=== PATIENT | female | born 1990 | race Two or more races ===

== ENCOUNTER 2016-12-17 10:31 | Emergency (ER) | payer BC ==
[2016-10-11 21:07] VITALS: BMI 21.0
--- NOTE | 2016-12-17 11:25 | OBHP ---
Datetime: 12/17/2016 11:17 IP Chief Complaint Other: fever and sore throat IP Admit Plan Other: transfer to main er Admit Comment, IP Provider: Chief complaint -fever and sore throat HPI 26 y/o at 21.2 wga with c/o sore throat, difficulty swallowing and having temp 100.5 F l ast night.Denies abdominal pain, back pain, vaginal bleeding or loss of fluid.Denies dysuria, urgency , frequency.States that she took temp last night and it was 100.5 F.Patient states that she took tyle nol this am.Patient called her PCP today and was advised to come to ER for evaluation. course - care with Dr CRUZ; placenta previa PMH denies PSH denies OBGYN HX Social hx denies tobacco,alcohol or illcit drug use Exam see exam section A/P 26 y/o at 21.2 wga with c/o fever and sore throat and difficulty swallowing since last ni ght.FHR 150S.Patient cleared from obstetric standpoint -transfer to main er for further evaluation Dr Cruz informed Pelvic Type - PN: Adequate Extremities - PN: Normal Abdomen - PN: Normal FHR - Baseline A Provider: 150S Gestation - Est Wks by US: 21.2 Vital Signs Provider: Reviewed Vital Signs Provider Details: temp 99.5 F Genitourinary Exam: Not Done DTRs - PN: Normal
[2016-12-17 12:27] VITALS: BP 96/57; PULSE 92; RESP 18; TEMP 98.5; O2SAT 100
--- NOTE | 2016-12-17 12:50 | C.PDOC ---
History Of Present Illness 26 y/o female presents to the ED with complaints of sore throat, fever, headache and nausea since yesterday. Pt is currently 21 weeks , . Pt was sent to ED from OB ED where they checked urine and had NST which were normal. Pt denies abdominal pain, vaginal bleeding/discharge, dysuria/hematuria. Time Seen by Provider: 12/17/16 12:30 Chief Complaint (Nursing): GI Problem History Per: Patient History/Exam Limitations: None Onset/Duration Of Symptoms: Hrs Current Symptoms Are (Timing): Still Present Symptoms Have Been: Continuous Severity: Moderate Past Medical History Reviewed: Historical Data, Nursing Documentation, Vital Signs Vital Signs: Last Vital Signs Temp 98.5 F 12/17/16 12:00 Pulse 92 H 12/17/16 12:00 Resp 18 12/17/16 12:00 BP 96/57 L 12/17/16 12:00 Pulse Ox 100 12/17/16 13:39 - Medical History PMH: Hypothyroidism - [facility] Procedures IRRIGATION OF EAR (11/02/13) Family History: States: No Known Family Hx - Social History Hx Tobacco Use: No Hx Alcohol Use: No Hx Substance Use: No - Immunization History Hx Tetanus Toxoid Vaccination: No Hx Influenza Vaccination: No Hx Pneumococcal Vaccination: No Review Of Systems Except As Marked, All Systems Reviewed And Found Negative. Constitutional: Positive for: Fever ENT: Positive for: Throat Pain Cardiovascular: Negative for: Chest Pain, Palpitations Respiratory: Negative for: Cough, Shortness of Breath Gastrointestinal: Positive for: Nausea. Negative for: Vomiting, Abdominal Pain , Diarrhea Genitourinary: Negative for: Dysuria, Hematuria, Vaginal Discharge, Vaginal Bleeding Neurological: Positive for: Headache Physical Exam - Physical Exam Appears: Non-toxic, No Acute Distress, Other (speaking in full sentences) Skin: Warm, Dry, No Rash Head: Normacephalic Oral Mucosa: Moist Throat: Erythema, Exudate, No Drooling, Other (tonsillar swelling with erythema and exudates bilaterally) Neck: Normal ROM, Supple, Other (no meningismus) Cardiovascular: Rhythm Regular, No Murmur Respiratory: Normal Breath Sounds, No Rales, No Rhonchi, No Wheezing Gastrointestinal/Abdominal: Bowel Sounds, Soft, No Tenderness, Other (gravid) Extremity: Bilateral: Atraumatic Neurological/Psych: Oriented x3 ED Course And Treatment O2 Sat by Pulse Oximetry: 100 (on room air) Pulse Ox Interpretation: Normal Progress Note: Plan: Patient given PO tylenol and amoxicillin in ED, as well as rx for same. She was instructed to follow up with PMD/clinic in 1-2 days, and understands she should return to ED if symptoms worsen. Reevaluation Time: 13:00 Reassessment Condition: Improved Disposition Counseled Patient/Family Regarding: Diagnosis, Need For Followup, Rx Given - Disposition Referrals: Gareth Page MD [Medical Doctor] - Disposition: HOME/ ROUTINE Disposition Time: 13:00 Condition: STABLE Additional Instructions: FOLLOW UP WITH YOUR DOCTOR IN 1-2 DAYS USE MEDICATIONS DIRECTED RETURN TO ER IF SYMPTOMS WORSEN Prescriptions: Amoxicillin 500 mg PO BID #14 tablet Acetaminophen [Tylenol 325mg tab] 650 mg PO Q6 PRN #30 tab PRN Reason: pain/fever Instructions: Pharyngitis (ED) Print Language: GRENADIAN - POA Present On Arrival: None - Clinical Impression Clinical Impression: Pharyngitis - Scribe Statement The provider has reviewed the documentation as recorded by the Beth Peralta Provider Attestation: All medical record entries made by the Beth were at my direction and personally dictated by me. I have reviewed the chart and agree that the record accurately reflects my personal performance of the history, physical exam, medical decision making, and the department course for this patient. I have also personally directed, reviewed, and agree with the discharge instructions and disposition.
[2016-12-17] MEDS ORDERED: Amoxicillin-Clav 500-125 mg Tab PO ONE (12:57)
== END 2016-12-17 13:02 | disposition home or self-care (01) ==
LOC: C.EROB 10:31 → C.ER 10:31
DX: J02.9 Acute pharyngitis, unspecified (principal)

== ENCOUNTER 2017-04-14 05:59 | Inpatient (IN) | payer BC, OTHER ==
[2016-10-11 21:07] VITALS: BMI 21.0
[2017-04-14] MEDS ORDERED: Sodium Citrate/Citric Acid 15 ml Sol PO ONE (06:52)
[2017-04-14] MEDS ORDERED: ceFAZolin 2 GM in Sodium Chloride 0.9% 100 ML IVPB ONE (06:52)
[2017-04-14] MEDS ORDERED: Lactated Ringer's 1,000 ML IV SCH (07:00)
--- NOTE | 2017-04-14 07:00 | OBHP ---
Datetime: 04/14/2017 06:55 IP Adm Impression: Term, intrauterine IP Admit Plan: Initiate Section protocol Admit Comment, IP Provider: @ 38+ wks with previous cesearean ection genaro eery 1=2 mi nutes since last night increasing intenseity and frequency, denies lof, vb, +FM Ante reports uncomplicated OB: FT LFTSC M[place]ER KIL[place] DRIED SALT: dnie PMH: deies PSH: CxS MEDS: PNV FH:X non continbute A/P @ 38+ wks previus cesearen section cotnracting in labor, -admit as per MD -npo, ivf -admission labs -digital production artist to OR -anesthesi/or aware -preop antibiocs -scds -abdominal prep -santiago to gavity -pmd to obtain consent paln as per PMD Pelvic Type - PN: Adequate Extremities - PN: Normal Abdomen - PN: Normal Back - PN: Normal Breast - PN: Not Done Lungs - PN: Normal Heart - PN: Normal Thyroid - PN: Normal Neurologic - PN: Normal HEENT - PN: Normal General - PN: Normal Presentation-Admit: Vertex FHR - Baseline A Provider: 135 Membranes, Provider: Intact Contraction Comments Provider: q 2 min Gestation - Est Wks by US: 38.1 EGA AdmitDate IP: 38.1 Vital Signs Provider: Reviewed; Within Normal Limits IP Chief Complaint: Uterine contractions NICHD Variability Prov Fetus A: Moderate 6-25bpm FHR Category Provider Fetus A: Category I NICHD Decel Fetus A IP Provider: Prolonged Dilatation, Provider: 4 Effacement, Provider: 50 Station, Provider: -2 Genitourinary Exam: Normal DTRs - PN: Normal
[2017-04-14 07:09] LABS: BASO # 0.1 K/uL (0.0-0.2); BASO % 0.7 % (0.0-2.0); EOS # 0.1 K/uL (0.0-0.7); EOS % 0.7 % (0.0-4.0); HEMATOCRIT 32.6 % (34.0-47.0); LYMPH # 2.5 K/uL (1.0-4.3); LYMPH % 20.8 % (20.0-40.0); MEAN CELL VOLUME 80.3 fL (81.0-99.0); MEAN CORPUSCULAR HEMOGLOBIN 25.6 pg (27.0-31.0); MEAN CORPUSCULAR HGB CONC 31.9 g/dL (33.0-37.0); MEAN PLATELET VOLUME 11.1 fL (7.2-11.7); MONO # 1.3 K/uL (0.0-0.8); NRBC % 0.1 % (0.0-2.0); RED CELL DISTRIBUTION WIDTH 15.5 % (11.5-14.5); WHITE BLOOD COUNT 11.9 K/uL (4.8-10.8)
[2017-04-14 07:12] LABS: RBC URINE 3 /hpf (0-3); URINE BACTERIA OCC (<OCC); URINE BILIRUBIN NEGATIVE (NEGATIVE); URINE BLOOD NEGATIVE (NEGATIVE); URINE COLOR Yellow (YELLOW); URINE GLUCOSE (UA) NORMAL (Normal); URINE KETONE NEGATIVE (NEGATIVE); URINE LEUKOCYTE ESTERASE NEG Leu/uL (Negative); URINE PROTEIN NEGATIVE (NEGATIVE); URINE UROBILINOGEN NORMAL mg/dL (0.2-1.0); WBC URINE 5 /hpf (0-5)
[2017-04-14 07:25] LABS: CHLORIDE 105 mmol/L (98-107); SODIUM 137 mmol/L (132-148)
[2017-04-14 07:26] LABS: POTASSIUM 3.5 mmol/L (3.6-5.2)
[2017-04-14 07:28] LABS: GFR AFRICAN-AMERICAN > 60
[2017-04-14 07:29] LABS: BLOOD UREA NITROGEN 7 mg/dL (7-17); CARBON DIOXIDE 23 mmol/L (22-30); GLUCOSE,RANDOM 77 mg/dL (65-105)
[2017-04-14] MEDS ORDERED: Oxytocin 20 units in LR 2,000 ML IV ONE (07:30)
[2017-04-14] MEDS ORDERED: cefOXitin IV 2 gm in Dextrose 2 GM/50 ML BAG IVPB ONE ×2 (07:30→11:00)
[2017-04-14] MEDS ORDERED: Sodium Citrate/Citric Acid 15 ml Sol ONE (07:30)
[2017-04-14] MEDS ORDERED: ePHEDrine 50 mg/ml Inj ONE (08:33)
[2017-04-14] MEDS ORDERED: Phenylephrine 10 mg/ml Inj ONE (08:33)
[2017-04-14] MEDS ORDERED: Morphine 1 mg/ml preservative-free Inj(Duramorph) ONE (08:33)
[2017-04-14] MEDS ORDERED: DiphenhydrAMINE 50 mg/ml Inj IVP PRN (09:43)
--- NOTE | 2017-04-14 09:51 | OBDS ---
DELIVERY PERSONNEL Delivery Doctor: Dr. Cruz Scrub Nurse: Arcelia Bonilla OBT Cistern Room Operator: Jennifer Lundberg RN Anesthesiologist: Dr. Del Rio MATERNAL INFORMATION Delivery Anesthesia: Spinal Medications in Delivery: pitocin 20 mu in 1000 LR Estimated Blood Loss (ml): 600 Placenta Cultured: Yes Maternal Complications: None Provider Comments: pt genaro. cephalic male . uterus closed vicryl x1, monocryl x1. p eritoneum closed 2-0 chromic, vicryl from either side of fascia, plain gut for 2-0. monocryl 4-0 for skin LABOR SUMMARY EDC: 04/27/2017 00:00 No. Babies in Womb: 1 Attempted: No Labor Anesthesia: None LABOR INFORMATION Group B Beta Strep: Negative Steroids Given: None Reason Steroids Not Administered: Not Applicable MEMBRANES Membranes Rupture Method: Artificial Rupture of Membranes: 04/14/2017 09:00 Length of Rupture (hrs): 0.03 Amniotic Fluid Color: Clear Amniotic Fluid Amount: Copious Amniotic Fluid Odor: Normal STAGES OF LABOR Stage 3 hrs: 0 Stage 3 min: 3 CSECTION DELIVERY Primary Indication: Repeat Elective Other Primary Indication: polyhydramnios CSection Urgency: Elective CSection Incidence: Repeat Labor: N/A Elective: Elective CSection Incision: Lower Uterine Transverse BABY A INFORMATION Delivery Date/Time: 04/14/2017 09:02 Method of Delivery: Born in Route : No : N/A Forceps: N/A Vacuum Extraction: Successful Shoulder Dystocia : No SHOULDER DYSTOCIA BABY A Infant Delivery Date/Time: 04/14/2017 09:02 PRESENTATION/POSITION BABY A Presentation: Cephalic Cephalic Presentation: Vertex Vertex Position: Left Occipital Anterior Breech Presentation: N/A PLACENTA INFORMATION BABY A Placenta Delivery Time : 04/14/2017 09:05 Placenta Method of Delivery: Manual Removal Placenta Status: Delivered SCORES BABY A Heart Rate 1 min: >100 bpm Resp Effort 1 min: Good Cry Reflex Irritability 1 min: Cough or Sneeze or Pulls Away Muscle Tone 1 min: Some Flexion of Extremities Color 1 min: Body Meservey, Extremities Blue Resuscitation Effort 1 min: N/A SCORE 1 MIN: 8 Heart Rate 5 min: >100 bpm Resp Effort 5 min: Good Cry Reflex Irritability 5 min: Cough or Sneeze or Pulls Away Muscle Tone 5 min: Active Motion Color 5 min: Body Meservey, Extremities Blue Resuscitation Effort 5 min: N/A SCORE 5 MIN: 9 INFORMATION BABY A Gestational Age at Delivery: 38.1 Gestational Status: Term Infant Outcome : Liveborn Infant Condition : Stable Sex: Male IDENTIFICATION/MEDS BABY A ID Band Number: [id number] ID Band Location: Left Leg; Left Arm Sensor Applied: Yes Sensor Number: [id number] Sensor Location : Cord Clamp WEIGHT/LENGTH BABY A Birthweight (gms): 3145 Weight (lb): 6 Weight (oz): 15 Infant Length Inches: 19.00 Length cms: 48.3 CORD INFORMATION BABY A No. Cord Vessels: 3 Nuchal Cord : N/A Cord Blood Taken: Yes ASSESSMENT BABY A Infant Complications: Polyhydramnios Physical Findings at Delivery: Within Normal Limits Infant Respirations: Intercostal Retractions Elementary School Director/ALS Called : No Infant Care By: Von Transferred To: [facility]
[2017-04-15] MEDS: Levothyroxine 50 MCG TAB PO SCH (06:12)
[2017-04-15 08:13] LABS: BASO # 0.1 K/uL (0.0-0.2); BASO % 0.6 % (0.0-2.0); EOS % 0.3 % (0.0-4.0); HEMATOCRIT 32.9 % (34.0-47.0); LYMPH # 1.2 K/uL (1.0-4.3); LYMPH % 6.8 % (20.0-40.0); MEAN CELL VOLUME 80.7 fL (81.0-99.0); MEAN CORPUSCULAR HEMOGLOBIN 25.8 pg (27.0-31.0); MEAN CORPUSCULAR HGB CONC 31.9 g/dL (33.0-37.0); MONO # 1.8 K/uL (0.0-0.8); MONO % 10.3 % (0.0-10.0); PLATELET COUNT 166 K/uL (130-400); RED CELL DISTRIBUTION WIDTH 15.4 % (11.5-14.5)
[2017-04-15 09:46] LABS: NEUTROPHIL 74 % (50-75); REACTIVE LYMPHOCYTES 2 % (0-0); TOTAL CELLS COUNTED 100
[2017-04-15 09:47] LABS: LARGE PLATELETS PRESENT
[2017-04-15] MEDS: Simethicone 80 mg Chewtab PO SCH ×4 (10:25→22:00)
[2017-04-15] MEDS: Oxycodone/Acetaminophen 5/325 mg Tab PO PRN ×3 (10:25→23:57)
[2017-04-16] MEDS: Levothyroxine 50 MCG TAB PO SCH (06:31)
[2017-04-16] MEDS: Simethicone 80 mg Chewtab PO SCH ×4 (11:18→21:17)
[2017-04-17] MEDS: Levothyroxine 50 MCG TAB PO SCH (06:32)
[2017-04-17 08:42] VITALS: BP 108/74; PULSE 90; RESP 18; TEMP 97.1
[2017-04-17] MEDS: Simethicone 80 mg Chewtab PO SCH (11:00)
[2017-04-17 16:40] LABS: BASO # 0.1 K/uL (0.0-0.2); BASO % 0.8 % (0.0-2.0); EOS # 0.4 K/uL (0.0-0.7); EOS % 3.9 % (0.0-4.0); HEMATOCRIT 32.4 % (34.0-47.0); LYMPH # 2.1 K/uL (1.0-4.3); LYMPH % 18.1 % (20.0-40.0); MEAN CELL VOLUME 79.6 fL (81.0-99.0); MEAN CORPUSCULAR HEMOGLOBIN 25.9 pg (27.0-31.0); MEAN CORPUSCULAR HGB CONC 32.5 g/dL (33.0-37.0); MEAN PLATELET VOLUME 10.4 fL (7.2-11.7); MONO % 8.7 % (0.0-10.0); RED CELL DISTRIBUTION WIDTH 15.6 % (11.5-14.5); WHITE BLOOD COUNT 11.4 K/uL (4.8-10.8)
--- NOTE | 2017-04-17 20:39 | OBDCSUM ---
Datetime: 04/17/2017 09:17 Discharged to, Provider: Home Follow up at, Provider: Dr Cruz Disch Instr Activity: Normal activity; May Shower Disch Instr Diet: Regular Discharge Diet restrict Prov: none Discharge Instructions, Provider: Routine instructions given Discharge Time: 04/17/2017 09:18 Follow up in weeks, Provider: 1 week Disch Referrals: None Contraception discussed, Prov: Yes Disch Activity Restrictions: No lifting; No sexual activity; Nothing in vagina - [place], tampon s, douche Datetime: 04/17/2017 08:54 Discharged to, Provider: Home Follow up at, Provider: Dr Cruz Disch Instr Diet: Regular Discharge Instructions, Provider: Routine instructions given Discharge Diagnosis, Provider: Term Delivered Discharge Time: 04/17/2017 08:54 Follow up in weeks, Provider: 1 week Disch Activity Restrictions: No exercising; No lifting; No driving; No sexual activity; Nothing in v agina - [place], tampons, douche Discharge Comment, Provider: take pain meds as prescribed go to er if you have severe pain, heavy bleeding, any discahreg from incision, redness or pain in calf muscels or any other problems Discharge Diagnosis Prov Other: s/p csection
--- NOTE | 2017-04-17 20:39 | OBPPN ---
Datetime: 04/17/2017 08:53 PP Pain Prov: Within normal limits PP Nausea Prov: Denies PP Flatus Prov: Yes PP BM Prov: Yes PP Heart Prov: Normal PP Lungs Prov: Normal PP Abdomen/Uterus Prov: Normal PP Lochia Prov: Normal PP CVA Tenderness Prov: Normal PP Extremities Prov: Normal PP C/S Incision Prov: Normal PP Progress Prov: Normal PP Impression Prov: Normal progression PP Plan Prov: Discharge PP Progress Note Prov: S-patient reports that her pain is controlled with pain meds.Ambulating and v oiding without difficulty.Denies nausea, vomiting, headache, chest pain, shortness of breath, numbnes s or tingling in hands and feet O-VSS Afebrile Fundus firm and below umbilcius Incision clean, dry and intact extremities- no calf tenderness A/P Patient s/p csection pod 3 doing well -discharge today -follow up in clinic in 1 week for incision check -discharge isntrcutions given to patient Vital Signs Provider PP: Reviewed; Within Normal Limits
[2017-04-17 21:44] VITALS: O2SAT 99
--- NOTE | 2017-04-25 13:03 | OBADHP ---
Datetime: 04/14/2017 06:55 Admit Comment, IP Provider: @ 38+ wks with previous cesearean ection genaro eery 1=2 mi nutes since last night increasing intenseity and frequency, denies lof, vb, +FM Ante reports uncomplicated OB: FT LFTSC PICC NURSE: dnie PMH: deies PSH: CxS MEDS: PNV FH:X non continbute A/P @ 38+ wks previus cesearen section cotnracting in labor, -admit as per MD -npo, ivf -admission labs -senior publications specialist to OR -anesthesi/or aware -preop antibiocs -scds -abdominal prep -santiago to gavity -pmd to obtain consent paln as per PMD Pelvic Type - PN: Adequate Extremities - PN: Normal Abdomen - PN: Normal Back - PN: Normal Breast - PN: Not Done Lungs - PN: Normal Heart - PN: Normal Thyroid - PN: Normal Neurologic - PN: Normal HEENT - PN: Normal General - PN: Normal Presentation-Admit: Vertex FHR - Baseline A Provider: 135 Membranes, Provider: Intact Contraction Comments Provider: q 2 min Gestation - Est Wks by US: 38.1 Vital Signs Provider: Reviewed; Within Normal Limits IP Chief Complaint: Uterine contractions NICHD Variability Prov Fetus A: Moderate 6-25bpm FHR Category Provider Fetus A: Category I NICHD Decel Fetus A IP Provider: Prolonged Dilatation, Provider: 4 Effacement, Provider: 50 Station, Provider: -2 Genitourinary Exam: Normal DTRs - PN: Normal EGA AdmitDate IP: 38.1 IP Adm Impression: Term, intrauterine IP Admit Plan: Initiate Section protocol Datetime: 12/17/2016 11:17 IP Chief Complaint Other: fever and sore throat IP Admit Plan Other: transfer to main er Vital Signs Provider Details: temp 99.5 F
--- NOTE | 2017-05-19 07:51 | OP ---
PROCEDURE DATE: 04/14/2017 PREOPERATIVE DIAGNOSES: 1. Thirty-eight weeks. 2. Prior uterine incision with . 3. Polyhydramnios. POSTOPERATIVE DIAGNOSES: 1. Thirty-eight weeks. 2. Prior uterine incision with . 3. Polyhydramnios. OPERATIVE PROCEDURE: Repeat section. NEWS VIDEO EDITOR: Dr. Bell. FINDINGS: in vertex position. Normal appearing tubes and ovaries. ESTIMATED BLOOD LOSS: 600 mL COMPLICATIONS: None. SPECIMENS: None. DESCRIPTION OF PROCEDURE: The patient was taken to the OR where a time-out was performed. Adequate anesthesia was induced with spinal anesthesia. The patient was prepped and draped in the usual sterile fashion. A Pfannenstiel incision was made and carried down to the subcutaneous tissue to the fascia. The fascial incision was made with Bovie cautery and extended transversely. The fascia was from the underlying rectus tissue superiorly and inferiorly. The peritoneum was identified and entered. The peritoneal incision was extended bluntly. The bladder flap was created and dissected away from the incision site. A lower uterine incision was made. The fetus was delivered from vertex position. Apgars were 9 at 1 minute and 9 at 5 minutes. The cord was clamped and cut. The placenta was removed intact manually. The uterine outline and tubes and ovaries appeared normal. The uterine incision was closed with 2 layers, first with 0 Vicryl and then with 0 Monocryl. Hemostasis was observed. The peritoneum was closed with 2-0 chromic. The fascia was then reapproximated with running sutures of 0 Vicryl from either ends. The subcutaneous tissue was reapproximated with 2-0 plain gut. The skin was reapproximated with 4-0 Monocryl. Instruments, sponge and needle counts are correct prior to the abdominal closure and at the conclusion of the case. DISPOSITION: Stable for PACU. I was present and scrubbed for the entire procedure. Francie Cruz MD
== END 2017-04-16 16:45 | disposition home or self-care (01) | DRG 766 ==
LOC: C.EROB 05:59 → C.4D 06:47 → C.4M 11:50
PROVIDERS: ADMIT Obstetrics & Gynecology; ATTEND Obstetrics & Gynecology
PROC: 10D00Z1 Extraction of Products of Conception, Low, Open Approach (ICD-10-PCS; principal; 2017-04-14)
DX: O40.3XX0 Polyhydramnios, third trimester, not applicable or unspecified (principal); Z37.0 Single live birth; Z3A.38 38 weeks gestation of pregnancy; O34.211 Maternal care for low transverse scar from previous cesarean delivery

== ENCOUNTER 2017-08-16 08:44 | Emergency (ER) | payer BC, MEDICAID ==
[2017-08-16 08:45] VITALS: BMI 21.0
[2017-08-16 08:53] VITALS: RESP 20; O2SAT 98
[2017-08-16] MEDS ORDERED: Naproxen 550 mg Tab PO STA (09:29)
[2017-08-16 09:56] LABS: RBC URINE 1 /hpf (0-3); URINE BACTERIA OCC (<OCC); URINE BILIRUBIN NEGATIVE (NEGATIVE); URINE BLOOD NEGATIVE (NEGATIVE); URINE COLOR Yellow (YELLOW); URINE GLUCOSE (UA) NORMAL (Normal); URINE KETONE 1+ mg/dL (NEGATIVE); URINE LEUKOCYTE ESTERASE NEG Leu/uL (Negative); URINE PROTEIN NEGATIVE (NEGATIVE); URINE UROBILINOGEN NORMAL mg/dL (0.2-1.0); WBC URINE 2 /hpf (0-5)
[2017-08-16] MEDS ORDERED: Amoxicillin-Clav 500-125 mg Tab PO ONE (10:18)
[2017-08-16] MEDS ORDERED: Naproxen 550 mg Tab PO ONE (10:19)
[2017-08-16 11:36] VITALS: BP 101/67; PULSE 97; TEMP 97.5
--- NOTE | 2017-08-16 11:41 | C.PDOC ---
History Of Present Illness 27-year-old female, PMHx includes Hypothyroidism, presents to the emergency department with complaints of sore throat, light headedness, abdominal cramping and one episode of non-bloody diarrhea. Patient denies cough, ear pain, vomiting , dysuria. Time Seen by Provider: 08/16/17 09:11 Chief Complaint (Nursing): Flu-like Symptoms History Per: Patient History/Exam Limitations: no limitations Onset/Duration Of Symptoms: Days Current Symptoms Are (Timing): Still Present Severity: Mild Past Medical History Reviewed: Historical Data, Nursing Documentation, Vital Signs Vital Signs: Last Vital Signs Temp 97.5 F L 08/16/17 10:55 Pulse 97 H 08/16/17 10:55 Resp 20 08/16/17 10:55 BP 101/67 08/16/17 10:55 Pulse Ox 98 08/16/17 15:32 - Medical History PMH: Hypothyroidism - [facility] Procedures EXTRACTION OF POC, LOW CERVICAL, OPEN APPROACH (04/14/17) IRRIGATION OF EAR (11/02/13) Family History: States: No Known Family Hx - Social History Hx Tobacco Use: No Hx Alcohol Use: No Hx Substance Use: No - Immunization History Hx Tetanus Toxoid Vaccination: No Hx Influenza Vaccination: Yes (2016) Hx Pneumococcal Vaccination: No Review Of Systems Except As Marked, All Systems Reviewed And Found Negative. Constitutional: Negative for: Fever, Chills ENT: Positive for: Throat Pain Cardiovascular: Negative for: Chest Pain Respiratory: Negative for: Cough, Shortness of Breath Gastrointestinal: Positive for: Abdominal Pain, Diarrhea. Negative for: Nausea , Vomiting Musculoskeletal: Negative for: Back Pain Skin: Negative for: Rash Physical Exam - Physical Exam Appears: Well, Non-toxic, No Acute Distress (Mild discomfort), Other (Speaking in full sentences) Skin: Warm, Dry, No Rash Head: Normacephalic Eye(s): bilateral: Normal Inspection Nose: Normal Oral Mucosa: Moist Throat: Erythema (mild), Exudate (Bilateral tonsillar exudates ), No Drooling, Other (uvula midline and normal in appearance ) Neck: Supple (No lymphadenopathy) Cardiovascular: Rhythm Regular Respiratory: Normal Breath Sounds, No Rales, No Rhonchi, No Stridor Gastrointestinal/Abdominal: Normal Exam, Bowel Sounds, Soft, No Tenderness Extremity: Normal ROM Neurological/Psych: Oriented x3 ED Course And Treatment O2 Sat by Pulse Oximetry: 98 (on RA) Pulse Ox Interpretation: Normal Progress Note: UA/HCG ordered and reviewed - (-) for Patient given PO amoxicillin and naprosyn. Reevaluation Time: 11:45 Reassessment Condition: Improved (Patient reassessed, symptoms improved. Rxs given for amoxicillin, naprosyn and chloraseptic spray. Patient instructed to follow up with PMD/clinic in 1-2 days. She understands she should return to ED if symptoms worsen.) Disposition Counseled Patient/Family Regarding: Studies Performed, Diagnosis, Need For Followup, Rx Given - Disposition Referrals: Shaik Frost MD [Staff Provider] - Disposition: HOME/ ROUTINE Disposition Time: 11:45 Condition: STABLE Additional Instructions: FOLLOW UP WITH YOUR DOCTOR IN 1-2 DAYS USE MEDICATIONS DIRECTED DRINK PLENTY OF FLUIDS RETURN TO ER IF SYMPTOMS WORSEN Prescriptions: Amoxicillin 875 mg PO BID #14 tab Naproxen 375 mg PO BID PRN #20 tablet PRN Reason: pain Phenol/Glycerin [Chloraseptic Max [place]] 1 spray MM Q6 PRN #1 spray PRN Reason: THROAT PAIN Instructions: Pharyngitis (ED) Forms: [employer] (Nigerian) Print Language: PORTUGUESE - POA Present On Arrival: None - Clinical Impression Clinical Impression: Pharyngitis - Scribe Statement The provider has reviewed the documentation as recorded by the Scribe (Ginger Stanton) All medical record entries made by the Scribe were at my direction and personally dictated by me. I have reviewed the chart and agree that the record accurately reflects my personal performance of the history, physical exam, medical decision making, and the department course for this patient. I have also personally directed, reviewed, and agree with the discharge instructions and disposition.
== END 2017-08-16 12:15 | disposition home or self-care (01) ==
LOC: C.ER 08:44
DX: J02.9 Acute pharyngitis, unspecified (principal); E03.9 Hypothyroidism, unspecified

== ENCOUNTER 2018-03-26 08:04 | Emergency (ER) | payer MEDICAID ==
[2018-03-26 08:04] VITALS: BMI 21.0
[2018-03-26 08:14] VITALS: RESP 18
--- NOTE | 2018-03-26 09:15 | C.PDOC ---
History Of Present Illness 27 y/o female with history of Hypothyroidism presents to ED with c/o sore throat , subjective fever and pain when swallowing for 2 days. Patient denies chest pain, cough, sob, wheezing, nausea, vomiting or any other complaints at this time. Time Seen by Provider: 03/26/18 08:31 Chief Complaint (Nursing): ENT Problem History Per: Patient History/Exam Limitations: None Onset/Duration Of Symptoms: Days Current Symptoms Are (Timing): Still Present Past Medical History Reviewed: Historical Data, Nursing Documentation, Vital Signs Vital Signs: Last Vital Signs Temp 98.5 F 03/26/18 08:12 Pulse 94 H 03/26/18 08:12 Resp 18 03/26/18 08:12 BP 100/69 03/26/18 08:12 Pulse Ox 97 03/26/18 10:10 - Medical History PMH: Hypothyroidism Surgical History: No Surg Hx - [facility] Procedures EXTRACTION OF POC, LOW CERVICAL, OPEN APPROACH (04/14/17) IRRIGATION OF EAR (11/02/13) Family History: States: No Known Family Hx - Social History Hx Tobacco Use: No Hx Alcohol Use: No Hx Substance Use: No - Immunization History Hx Tetanus Toxoid Vaccination: No Hx Influenza Vaccination: Yes (2016) Hx Pneumococcal Vaccination: No Review Of Systems Constitutional: Positive for: Fever. Negative for: Chills ENT: Positive for: Throat Pain Cardiovascular: Negative for: Chest Pain Respiratory: Negative for: Cough, Shortness of Breath, Wheezing Gastrointestinal: Negative for: Nausea, Vomiting Skin: Negative for: Rash Physical Exam - Physical Exam Appears: Non-toxic, Other (uncomfortable) Skin: Warm, Dry Head: Atraumatic, Normacephalic Eye(s): bilateral: Normal Inspection Ear(s): Bilateral: TM Obscured By Wax Oral Mucosa: Moist Throat: Erythema, Exudate (left tonsilar), Other (enlarged tonsils bilateral) Neck: Supple Lymphatic: Adenopathy (tender submandibular) Cardiovascular: Rhythm Regular Respiratory: Normal Breath Sounds, No Rales, No Rhonchi, No Wheezing Gastrointestinal/Abdominal: Soft, No Tenderness, No Guarding, No Rebound Neurological/Psych: Oriented x3, Normal Speech, Normal Cognition ED Course And Treatment O2 Sat by Pulse Oximetry: 97 (RA) Pulse Ox Interpretation: Normal Medical Decision Making Medical Decision Making: Rapid strep ordered. Amoxicillin and Tylenol administered 1058 pt iwth neg rapid strep, will get urine poc preg, and d/c on clindamycin with ent f/u Disposition Counseled Patient/Family Regarding: Studies Performed, Diagnosis, Need For Followup, Rx Given - Disposition Referrals: Mervin Grimm MD [Staff Provider] - Disposition: HOME/ ROUTINE Disposition Time: 10:59 Condition: GOOD Additional Instructions: Please take antibiotics as prescribed. Gargle with warm salty water several times a day. Tylenol or Motrin for pain. Follow up with Dr Grimm Prescriptions: Clindamycin [Cleocin] 300 mg PO Q6 #28 cap Instructions: Sore Throat, Adult (DC) Forms: [employer] (Kyrgyz) - Clinical Impression Clinical Impression: Tonsillitis with exudate - PA / [employer] SUPERVISOR / Resident Statement MD/DO has reviewed & agrees with the documentation as recorded. - Scribe Statement The provider has reviewed the documentation as recorded by the Bernardoibmargaret Cerna All medical record entries made by the Bernardoibmargaret were at my direction and personally dictated by me. I have reviewed the chart and agree that the record accurately reflects my personal performance of the history, physical exam, medical decision making, and the department course for this patient. I have also personally directed, reviewed, and agree with the discharge instructions and disposition.
[2018-03-26 11:54] VITALS: BP 126/73; PULSE 78; TEMP 98; O2SAT 98
== END 2018-03-26 11:53 | disposition home or self-care (01) ==
LOC: C.ER 08:04
DX: J03.90 Acute tonsillitis, unspecified (principal)